=== PATIENT | female | born 2005 | race Two or more races ===

== ENCOUNTER 2024-04-03 14:58 | Emergency (ER) | payer MEDICAID ==
[~2024-04-03] VITALS: Ht 157.5 cm; Wt 77.0 kg
--- NOTE | 2024-04-03 15:20 | ED.PDOC ---
History of Present Illness HPI Comments 18F presents to the ER w/ no prior Hx associated w/ the c/c of vaginal bleeding. Pt is currently 8 weeks w/ a , and started having vaginal bleeding this morning when the opt was asleep. Pt reports on there being a little blood clot. Pt notes that she does not have an OB. Denies chills, fever, N/V/D, SOB, CP or other associated symptom's, modifiers, or recent injuries or sick contact at this time. Chief Complaint: Vaginal Bleed Time Seen by MD: 15:15 Primary Care Provider: MARY Reviewed Notes: Nurses Notes, Medications, Allergies Allergies: Uncoded Allergies: PENICILLIN (Allergy, Unknown, 04/03/24) Information Source: Patient Mode of Arrival: Ambulatory Severity: Moderate Timing: Hours Duration: Since onset, Hours Prehospital treatment: None Past Medical History PAST MEDICAL HISTORY: Denies Surgical History: Denies all surgeries TOWER TECHNICIAN History: No Pertinent TOWER TECHNICIAN History Family History Family History: Reviewed,noncontributory to illness, Unknown Social History Smoker: Non-Smoker Alcohol: Denies ETOH Use Drugs: Denies Drug Use Lives In: Home Constitutional: denies: chills, diaphoresis, fatigue, fever, malaise, sweats, weakness, others EENTM: denies: blurred vision, double vision, ear bleeding, ear discharge, ear drainage, ear pain, ear ringing, eye pain, eye redness, hearing loss, mouth pain, mouth swelling, nasal discharge, nose bleeding, nose congestion, nose pain, photophobia, tearing, throat pain, throat swelling, voice changes, others Respiratory: denies: cough, hemoptysis, orthopnea, SOB at rest, shortness of breath, SOB with excertion, stridor, wheezing, others Cardiovascular: denies: chest pain, dizzy spells, diaphoresis, Dyspnea on exe rtion, edema, irregular heart beat, left arm pain, lightheadedness, palpitations, PND, syncope, others Gastrointestinal: denies: abdomen distended, abdominal pain, blood streaked bowels, constipated, diarrhea, dysphagia, difficulty swallowing, hematemesis, melena, nausea, poor appetite, poor fluid intake, rectal bleeding, rectal pain, vomiting, others Genitourinary: reports: abnormal vagina bleeding, ; denies: burning, dyspareunia, dysuria, flank pain, frequency, hematuria, incontinence, pain, vagina discharge, urgency, others Neurological: denies: dizziness, fainting, headache, left sided numbness, left sided weakness, numbness, paresthesia, pre-existing deficit, right sided numbness, right sided weakness, seizure, speech problems, tingling, tremors, weakness, others Musculoskeletal: denies: back pain, gout, joint pain, joint swelling, muscle pain, muscle stiffness, neck pain, others Integumetry: denies: bruises, change in color, change in hair/nails, dryness, laceration, lesions, lumps, rash, wounds, others Allergic/Immunocompromised: denies: Difficulty Healing, Frequent Infections, Hives, Itching, others Hematologic/Lymphatic: denies: anemia, blood clots, easy bleeding, easy bruisin g, swollen glands, others Endocrine: denies: excessive hunger, excessive sweating, excessive thirst, excessive urination, flushing, intolerance to cold, intolerance to heat, unexplained weight gain, unexplained weight loss, others Psychiatric: denies: anxiety, bipolar disorder, depression, hopeless, panic disorder, schizophrenia, sleepless, suicidal, others All Other Systems: Reviewed and Negative Physical Exam General Appearance: No Apparent Distress HEENT: Normal ENT Inspection, Pharynx Normal, TMs Normal Neck: Full Range of Motion, Non-Tender, Normal, Normal Inspection Respiratory: Chest Non-Tender, Lungs Clear, No Accessory Muscle Use, No Respiratory Distress, Normal Breath Sounds Cardiovascular: No Edema, No JVD, No Murmur, No Gallop, Normal Peripheral Pulses, Regular Rate/Rhythm Breast Exam: Deferred Gastrointestinal: No Organomegaly, Non Tender, No Pulsatile Mass, Normal Bowel Sounds, Soft Genitalia: Deferred Pelvic: Deferred Rectal: Deferred Extremities: No calf tenderness, Normal capillary refill, Normal inspection, Normal range of motion, Non-tender, No pedal edema Musculoskeletal : Apperance: Normal Neurologic: Alert, surfacer II-XII nml as Tested, No Motor Deficits, Normal Affect, Normal Mood, No Sensory Deficits Cerebellar Function: Normal Reflexes: Normal Skin: Dry, Normal Color, Warm Lymphatic: No Adenopathy Was a procedure done? Was a procedure done?: No Differential Dx Considerations may include: Threatened , UTI, vaginal bleeding X-Ray, Labs, Meds, VS Vital Signs Date Time Temp Pulse Resp B/P (MAP) Pulse Ox O2 Delivery O2 Flow Rate FiO2 04/03/24 15:11 99.2 101 16 126/90 (102) 100 Lab Test 04/03/24 15:34 Range/Units Beta HCG, Quantitative Pending The patient's pelvic ultrasound shows: IMPRESSION: 1. Single living intrauterine with estimated ultrasound age of 8 weeks and 2 days by CRL. Small subchorionic hemorrhage is noted. The patient was being discharged The patient will follow up with the primary care doctor The patient was returned to the emergency department's the condition worsens. The patient was encouraged to follow up with an OBGYN Time of 1ST Reevaluation: 15:45 Reevaluation 1ST: Unchanged Patient Education/Counseling: Diagnosis, Treatment, Prognosis, Need For Follow Up Family Education/Counseling: No Family Present Departure 1 Departure Time of Disposition: 16:16 Impression: Primary Impression: Vaginal bleeding in Additional Impression: Threatened Disposition: 01 HOME / SELF CARE / HOMELESS Condition: Fair Discharged With: Self Critical Care Note Critical Care Time?: No Stability Stability form required: No Heart Score Heart Score: Heart Score Response (Comments) Value History N/A 0 EKG N/A 0 Age N/A 0 Risk Factors N/A 0 Troponin N/A 0 Total 0 I personally scribed for KELECHI BURGOS MD ([email or web address]) on 04/03/24 at 15:20. Electronically submitted by Mariano Guillory ([email or web address]). KELECHI BURGOS MD Apr 03, 2024 15:20
--- NOTE | 2024-04-03 16:09 | DVH ---
Procedure: US OB ULTRASOUND COMP LESS 14WKS 04/03/2024 03:25 PM Indication: vag bleeding Comparison: None Technique: Real-time grayscale and color images were obtained utilizing a transabdominal probe. FINDINGS: UTERUS: Anteverted, measuring 8.2 cm in length. Homogeneous myometrium without a discrete lesion. An intrauterine gestational sac is seen measuring 2.8 cm in mean diameter corresponding to 7 weeks and 4 days containing a pole measuring 1.8 cm in crown-rump length corresponding to 8 weeks and 2 da ys gestation. The estimated date of delivery is 11/13/2024. heart activity is 174 beats per min gina. A yolk sac is present. No free fluid in the endometrial canal. A 2.3 x 2 x 0.7 cm subchorionic hemorrhage noted. OVARIES: The bilateral ovaries are nonvisualized. No adnexal lesion seen. CUL-DE-SAC: No significant fluid noted. IMPRESSION: 1. Single living intrauterine with estimated ultrasound age of 8 weeks and 2 days by CRL. S mall subchorionic hemorrhage is noted.
[2024-04-03 16:41] VITALS: BP 104/78; PULSE 94; RESP 16; TEMP 98.2; O2SAT 99
== END 2024-04-03 16:45 | disposition home or self-care (01) ==
LOC: ER 14:58
DX: O20.0 Threatened abortion (principal); Z3A.08 8 weeks gestation of pregnancy
CPT/HCPCS: 36415; 76801; 84702